=== PATIENT | female | born 1980 | race Caucasian/White ===

== ENCOUNTER → 2018-02-27 | Outpatient (CLI) | payer BC, OTHER | LOC: CAT 10:12 | DX: G43.909 Migraine, unspecified, not intractable, without status migrainosus (principal) ==

== ENCOUNTER → 2020-03-26 | Outpatient (CLI) | payer BC, OTHER | LOC: LAB 12:08 | PROVIDERS: ATTEND Family Medicine | DX: R50.9 Fever, unspecified (principal); R05 Cough; J02.9 Acute pharyngitis, unspecified; Z20.828 Contact with and (suspected) exposure to other viral communicable diseases ==

== ENCOUNTER → 2020-07-07 | Outpatient (CLI) | payer BC, OTHER | LOC: LAB 13:53 | PROVIDERS: ATTEND Family Medicine | DX: R05 Cough (principal); R50.9 Fever, unspecified; J02.9 Acute pharyngitis, unspecified; Z20.822 Contact with and (suspected) exposure to COVID-19 ==

== ENCOUNTER → 2021-05-13 | Outpatient (CLI) | payer BC, OTHER ==
[~2021-05-13] VITALS: Ht 154.9 cm; Wt 61.7 kg
[~2021-05-13] MED LIST: ADDERALL 20 MG20 M1 PO; NORETHINDRONE0.35 MG PO; RIZATRIPTAN10 MG PO; SPIRONOLACTONE100 M1 PO
[2021-05-13 08:32] VITALS: BP 107/78
--- NOTE | 2021-05-13 08:45 | NUR ---
Pain Clinic Assessment: 1. History of Osteoarthritis: Not Applicable History of Rheumatoid Arthritis: Not Applicable 2. Height: 5 ft. 1 in. 154.9 cm. Weight: 136.0 lb. oz. 61.689 kg. Patient's BMI: 25.7 3. Vital Signs: BP: 107/78 Pulse: 80 Resp: 14 Temp: 02 Sat: 100 ECG Mon: 4. Pain Intensity: 5 5. Fall Risk: Dizziness: Y Needs help standing or walking: N Fallen in the last 3 months: N Fall risk comments: 6. Patient on Blood Thinner: None 7. History of Hypertension: N 8. Opioid Therapy greater than 6 weeks: Opiate Contract Signed: 9. Risk Assessment Tool Provided: 2 LOW RISK 10. Functional Assessment Tool: 11. Recreational Drug Use: Never Drug Type: Tobacco Use: Never Smoker Tobacco Type: Amount or Packs/day: How Many Years: Alcohol Use: Yes Frequency: Weekly Quant: 1
--- NOTE | 2021-05-15 07:28 | HPC ---
[facility] [address] [place] [address] PAIN MANAGEMENT CONSULTATION Name: ODALIS ESCAMILLA Room #: REG ADRIANA Alvaro#: [id number] Admission: 05/13/21 Attend Phys: Levon Butt DO Discharge: Date of : 78 Report #: [id number] THIS REPORT FOR: cc: Levon Ferrell,Levon Sage DO ~ cc: Levon Ferrell DO DATE OF SERVICE: 05/13/2021 REFERRING PHYSICIAN: Levon Ferrell DO CHIEF COMPLAINT: Low back pain, right lower extremity pain, paresthesias. HISTORY OF PRESENT ILLNESS: As you know, the patient is a very pleasant 40-year-old female reporting longstanding history of low back pain, right lower extremity pain with paresthesias. The patient states pain began somewhere in 08/2020. There was no inciting injury or trauma. The patient originally trialed jqmz-uav-bsyifta medications, rest and relaxation. She is using byvr-xhm-dhqvycf ibuprofen and Jazz Back and Body without much benefit. She sought evaluation through chiropractor, undergoing 6 different sessions of chiropractic manipulation without improvement on a longstanding basis. She did receive some transient improvement in symptoms. She has trialed stretching exercises to try to address some of her issues. When all else failed, the patient returned to her primary care physician and discussed her concerns. She has been started on physical therapy and has been attending PT with minimal improvement. Due to lack of improvement with conservative treatment options and the fact she continues to experience pain that is becoming more debilitating, she was referred on to our clinic. The patient reports today her pain is continuous. She describes the pain as more of a burning, cramping, aching, sharp, stabbing, numbness, tingling. Places current pain score 5/10, daily average of 5/10, worst pain has been is 10/10. The patient states that sitting and bending tends to exacerbate symptoms. Standing tends to improve pain as does repositioning. She has been referred to our clinic to discuss interventional treatment options to address suspected lumbar radiculopathy. PAST MEDICAL HISTORY: None. PAST SURGICAL HISTORY: 1. Breast augmentation. 2. Vaginal mesh implantation. SOCIAL HISTORY: The patient denies tobacco, IV or illicit drug use. Admits to approximately 3-4 alcoholic beverages per week. She is employed as an [employer] coordinator. She is working, not receiving workmen's [place] [address] PAIN MANAGEMENT CONSULTATION Name: ODALIS ESCAMILLA Room #: REG [facility]ENTER[facility]ley.#: [id number] Admission: 05/13/21 Attend Phys: Levon Butt DO Discharge: Date of : 78 Report #: [id number] to obtain disability benefits. She is not in litigation in regards to pain. She is unaccompanied at today's visit. REVIEW OF SYSTEMS: Positive for varicose veins, frequent and recurrent headaches, lightheadedness and dizziness, numbness and tingling sensations involving the low back and right lower extremity. All other review of systems negative per 12-point review of systems other than those listed in history of present illness. Pain impact score 31/70, moderate interference of daily activities secondary to pain. ALLERGIES: No known drug allergies. CURRENT MEDICATIONS: None. IMAGING: MRI of the lumbar spine obtained on 04/29/2021 shows L1-L2, L2-L3 unremarkable. L3-L4 shows mild disk desiccation. No evidence of focal disk protrusion. No central canal or neural foraminal stenosis. L4-L5 shows disk desiccation, disk space narrowing, diffuse disk bulge, focal right paracentral disk protrusion, deforming the thecal sac. The thecal sac measures 6 mm in diameter and the lateral recess is also narrowed. There is facet arthropathy, mild right foraminal stenosis. No significant left foraminal stenosis. L5-S1 shows disk space narrowing and disk desiccation. There is a 2 mm anterolisthesis of L5 on S1. Facet hypertrophy is noted, a small focal disk protrusion, minimal diffuse disk bulge. Thecal sac again measures 6 mm in diameter. Mild bilateral foraminal stenosis. PHYSICAL EXAMINATION: VITAL SIGNS: Blood pressure 107/78, pulse is 80, respiratory rate 14 and unlabored. The patient 100% on room air. Height 5 feet 1 inch tall, weight 136 pounds, BMI calculated 25.7. GENERAL: Well-developed, well-nourished, well-hydrated 40-year-old female, appears stated age. She is placing current pain score at 5/10. HEENT: Normocephalic, atraumatic. Pupils are round. She is wearing a mask in compliance with COVID-19 regulations and hospital policies. LUNGS: Clear, no wheeze, rhonchi or rales. CARDIOVASCULAR: Regular. No appreciable gallop, no rub. ABDOMEN: Soft. EXTREMITIES: Show no clubbing, no cyanosis. No appreciable edema. MUSCULOSKELETAL: Lower extremity strength equal and symmetrical 5/5, though there is slight giveaway strength noted with hip flexion, knee extension on the right when compared to left. Seated straight leg raising is positive. Supine straight leg raising is positive on the right. JEFE's test is negative. Modified Gaenslen's positive for axial low back pain. Ankle clonus negative. Babinski is negative. Muscle bulk and tone is symmetrical in lower extremities. Strength is 5/5. Deep tendon reflexes at patella and Achilles equal and symmetrical. [facility] [address] [place] [address] PAIN MANAGEMENT CONSULTATION Name: ODALIS ESCAMILLA Room #: REG DOREENMario Alberto Hull.#: [id number] Admission: 05/13/21 Attend Phys: Levon Butt DO Discharge: Date of : 78 Report #: [id number] ASSESSMENT: 1. Symptomatic lumbar radiculopathy. 2. Severe central canal stenosis of lumbar spine. 3. Displacement of lumbar intervertebral disk with radiculopathy. 4. Lateral recess stenosis of lumbar spine. 5. Facet arthropathy of lumbar spine. 6. Chronic intractable pain. PLAN: 1. Based on today's physical exam and history the patient has provided, the description the patient uses in regards to pain and the location of symptoms, the likely source of the patient's pain is lumbar radiculopathy. The patient and I discussed at length today the treatment options for lumbar radicular symptoms after reviewing her MRI in its entirety and describing how those findings in the MRI equate to her current distribution of pain. The following was discussed with the patient for treatment options after our 18 minute review of her MRI and correlating those symptoms to her findings. We discussed physical therapy, stretching exercises, core strengthening as treatment approach. She is currently in physical therapy and would recommend that she continue to keep working with them. We have discussed treatment options that would include additional neuropathic medications such as amitriptyline, nortriptyline, Cymbalta, Lyrica or gabapentin. We discussed lumbar epidural injections under fluoroscopic guidance, for which the patient was referred to our clinic. We also discussed spinal cord stimulator therapy and ultimately surgical decompression at the L4-L5 and L5-S1 levels. After reviewing the risks and benefits of all proposed treatment options, the patient chose to begin with an epidural injection under fluoroscopic guidance. 2. The patient was advised due to third constitution party payer restrictions, authorization would have to be obtained before the patient could undergo a lumbar epidural injection. We will begin that authorization immediately. We have tentatively placed an appointment for the patient on 05/15/2021 at 7:45 a.m. The patient is going to try to clear her schedule to be able to undergo the injection, assuming authorization can be obtained. 3. No medication changes made at today's visit. The patient will continue current medical therapy as prior prescribed. 4. We plan to see the patient back in followup visit on 05/15/2021 to undergo lumbar epidural injection under fluoroscopic guidance. We are hopeful at that time, she will be able to undergo the procedure and she will see good improvement in symptoms. 5. We wish to thank Dr. Ferrell for the referral of the patient to our clinic. We will keep you apprised of response to treatment [place] [address] PAIN MANAGEMENT CONSULTATION Name: TONAPRINCE CHARLESY Room #: REG ADRIANA John#: [id number] Admission: 05/13/21 Attend Phys: Levon Butt DO Discharge: Date of : 78 Report #: [id number] radiculopathy. Again, we wish to thank you for the opportunity to see the patient in consultation. <ELECTRONICALLY SIGNED> By: Levon Butt DO 05/15/21 [id number] Levon Butt DO /nt
== END ==
LOC: PAIN 06:55
PROVIDERS: ATTEND Anesthesiology Pain Medicine
DX: M47.26 Other spondylosis with radiculopathy, lumbar region (principal); M48.061 Spinal stenosis, lumbar region without neurogenic claudication; M51.16 Intervertebral disc disorders with radiculopathy, lumbar region; G89.29 Other chronic pain; M79.604 Pain in right leg; Z88.0 Allergy status to penicillin

== ENCOUNTER → 2021-05-15 | Outpatient (CLI) | payer BC, OTHER ==
[~2021-05-15] VITALS: Ht 154.9 cm; Wt 61.8 kg
--- NOTE | ~2021-05-15 | HPC ---
[facility] [place] [place] [address] PAIN MANAGEMENT CONSULTATION Name: ODALIS ESCAMILLA Room #: REG ADRIANA BenjaminCharlineMaluCharline#: [id number] Admission: 05/15/21 Attend Phys: Levon Butt DO Discharge: Date of : 78 Report #: [id number] THIS REPORT FOR: cc: Levon Ferrell,Levon Sage DO ~ cc: Levon Ferrell DO DATE OF SERVICE: 05/15/2021 CHIEF COMPLAINT: Low back pain, right lower extremity pain with paresthesias. HISTORY OF PRESENT ILLNESS: As you know, the patient is a very pleasant 40-year-old female reporting longstanding history of low back pain, right lower extremity pain with paresthesias. The patient states pain began somewhere in 08/2020. No inciting injury or trauma. She was seen in consultation per the request of her primary care physician after failing conservative treatment options to address lumbar radicular symptoms with possible epidural injection. We saw the patient in consultation 05/13/2021. We began prior authorization processes and were able to establish the patient's appointment today to undergo a lumbar epidural injection under fluoroscopic guidance. She was able to clear her schedule for the afternoon to be able to take it easy and rest after the procedure. The patient has had no changes in medication management since our last visit. There has been no new injury or trauma. ALLERGIES: No known drug allergies. CURRENT MEDICATIONS: None. SOCIAL HISTORY: The patient denies tobacco, IV or illicit drug use. Admits to occasional alcohol beverage. She is employed, working, not receiving workmen's compensation, accompanied by a family member present in room today. IMAGING: No new imaging available. PHYSICAL EXAMINATION: VITAL SIGNS: Blood pressure 112/77, pulse is 98, respiratory rate 16 and unlabored. The patient is 97% on room air. Height 5 feet 1 inch tall, weight 136.2 pounds, BMI calculated 25.7. GENERAL: Well-developed, well-nourished, well-hydrated 40-year-old female appearing stated age, pain is rated today 5/10. HEENT: Normocephalic, atraumatic. Pupils equal, round, reactive, responsive. She is wearing a mask in compliance with COVID-19 regulations and hospital policy. EXTREMITIES: Show no clubbing, no cyanosis, no edema. MUSCULOSKELETAL: Lower extremity strength equal and symmetrical 5/5. Slight giveaway strength noted again with hip flexion, knee extension on the right when [address] [address] PAIN MANAGEMENT CONSULTATION Name: ODALIS ESCAMILLA Room #: REG [facility] Sourav.Malu.#: [id number] Admission: 05/15/21 Attend Phys: Levon Butt DO Discharge: Date of : 78 Report #: [id number] compared to left. This was due to pain generation. Muscle bulk and tone equal and symmetrical. Seated straight leg raising positive on the right. Supine straight leg raising positive on the right. ASSESSMENT: 1. Symptomatic lumbar radiculopathy. 2. Severe central canal stenosis of lumbar spine. 3. Displacement of lumbar intervertebral disk with radiculopathy. 4. Lateral recess stenosis of lumbar spine. 5. Facet arthropathy of lumbar spine. 6. Chronic intractable pain. PLAN: 1. The patient returns today in followup visit to undergo lumbar epidural injection under fluoroscopic guidance. We have presented to the patient the various treatment options to address lumbar radicular symptoms. She made today's appointment to undergo a lumbar epidural injection. The patient has been advised of the risks and the benefits of this procedure. These risks include but are not necessarily limited to bleeding, bruising, infection, worsening pain, no relief of pain, also risk of temporary or permanent muscle weakness, temporary or permanent nerve damage, possible paralysis, post-dural puncture headache and . The patient states understood and wished to proceed. 2. No medication changes made at today's visit. The patient will continue current medical therapy as prior prescribed. 3. We will plan to see the patient back in followup visit in 31 days. At that time, review the efficacy of today's lumbar epidural injections determined next in the series of epidural injections would be recommended. DESCRIPTION OF PROCEDURE: L5-S1 right parasagittal epidural steroid injection under fluoroscopic guidance. Placed in a prone position with pillow under the abdomen to decrease lumbar lordosis. This is the first procedure of the second series that the patient is undergoing. After obtaining written consent, the patient was taken back to the fluoroscopy suite, placed in a prone position with pillow under the abdomen to decrease lumbar lordosis. The skin overlying the lumbosacral area was then prepped and draped in aseptic fashion. The L5-S1 vertebral interspace was then identified by AP fluoroscopy. The skin and subcutaneous tissue overlying the target site of injection was anesthetized with 3 mL 1% lidocaine. A 20-gauge 3-1/2 inch Tuohy needle was then advanced under fluoroscopic guidance towards the epidural space using a right parasagittal approach. The epidural space was identified using loss of resistance to air technique. After negative [address] [address] PAIN MANAGEMENT CONSULTATION Name: ODALIS ESCAMILLA Room #: REG CLMario Alberto John#: [id number] Admission: 05/15/21 Attend Phys: Levon Butt DO Discharge: Date of : 78 Report #: [id number] aspiration for heme or cerebrospinal fluid, a total of 1 ml of Omnipaque was injected. A lumbar epidurogram was confirmed using both AP and lateral fluoroscopy. After negative aspiration for heme or cerebrospinal fluid, 5 mL of a solution containing 2 mL 40 mg per mL 80 mg total triamcinolone along with 3 mL of lidocaine 1% was injected in increments. Contrast spread was noted in epidural space. The needle was then retracted approximately half way and needle tract flushed with 1 mL of 1% lidocaine. Needle was then removed. There were no apparent sensory or motor deficits in the lower extremity following the procedure. A sterile bandage was placed over the injection site. The heart rate, pulse, oximetry and blood pressure were continuously monitored after the procedure. There were no apparent complications. The patient tolerated the procedure well and was carefully escorted to the recovery room in stable condition. There were no apparent complications. After meeting discharge criteria, the patient was then discharged home. By: [id number] Levon Butt DO /nt
[2021-05-15 07:41] VITALS: BP 112/77
--- NOTE | 2021-05-15 07:44 | NUR ---
Pain Clinic Assessment: 1. History of Osteoarthritis: Not Applicable History of Rheumatoid Arthritis: Not Applicable 2. Height: 5 ft. 1 in. 154.9 cm. Weight: 136.2 lb. oz. 61.780 kg. Patient's BMI: 25.7 3. Vital Signs: BP: 112/77 Pulse: 98 Resp: 16 Temp: 02 Sat: 97 ECG Mon: 4. Pain Intensity: 5 5. Fall Risk: Dizziness: N Needs help standing or walking: N Fallen in the last 3 months: N Fall risk comments: 6. Patient on Blood Thinner: None 7. History of Hypertension: N 8. Opioid Therapy greater than 6 weeks: Opiate Contract Signed: 9. Risk Assessment Tool Provided: 2 LOW RISK 10. Functional Assessment Tool: 11. Recreational Drug Use: Never Drug Type: Tobacco Use: Never Smoker Tobacco Type: Amount or Packs/day: How Many Years: Alcohol Use: Yes Frequency: Weekly Quant: 1
== END | disposition home or self-care (01) ==
LOC: PAIN 07:13
PROVIDERS: ATTEND Anesthesiology Pain Medicine
DX: M51.16 Intervertebral disc disorders with radiculopathy, lumbar region (principal); M47.27 Other spondylosis with radiculopathy, lumbosacral region; M47.26 Other spondylosis with radiculopathy, lumbar region; M48.061 Spinal stenosis, lumbar region without neurogenic claudication; G89.29 Other chronic pain; Z98.890 Other specified postprocedural states; Z79.899 Other long term (current) drug therapy; Z88.0 Allergy status to penicillin